=== PATIENT | male | born 1995 | race African-American/Black ===

== ENCOUNTER 2018-08-23 11:40 | Emergency (ER) | payer OTHER ==
[~2018-08-23] VITALS: Ht 175.3 cm; Wt 84.8 kg
[2018-08-23] MEDS ORDERED: TRAMADOL HCL 50 MG TAB PO ONE (12:00)
--- NOTE | 2018-08-23 14:41 | Diagnostic Imaging Report ---
Exam: Left foot series; 3 views dated 08/23/2018 History: Trauma Comparison: None available Findings: No fracture or dislocation. Minimal spurring of the calcaneus. Soft tissues are intact. Impression: No acute bony abnormality. Signed by: Dr. Heilo Solitario DO on 08/23/2018 2:37 PM
== END 2018-08-23 14:50 | disposition home or self-care (01) ==
LOC: ER 11:40
DX: S90.32XA Contusion of left foot, initial encounter (principal); W22.8XXA Striking against or struck by other objects, initial encounter; Y93.01 Activity, walking, marching and hiking; Y92.008 Other place in unspecified non-institutional (private) residence as the place of occurrence of the external cause
CPT/HCPCS: 99283

== ENCOUNTER 2020-01-25 23:42 | Emergency (ER) | payer BC ==
[~2020-01-25] VITALS: Ht 175.3 cm; Wt 90.7 kg
--- NOTE | 2020-01-25 23:52 | Emergency Department Note ---
History of Present Illnes History of Present Illness Chief Complaint: General Medicine Complaints History of Present Illness This is a 24 year old male with acute onset of dyspnea prior to arrival. . Historian: Patient Onset (how long ago): hour(s) Severity: moderate Onset quality: sudden Duration (how long): hour(s) Timing of current episode: constant Progression: waxing and waning Chronicity: new Context: Denies recent illness, Denies recent surgery, Denies recent immobilization, Denies recent travel, Denies trauma/injury, Denies new medications, Denies hx of DVT/PE, Denies non-compliance w/ medications, Denies other Relieving factors: none Exacerbating factors: none Associated symptoms: Reports shortness of breath Treatments prior to arrival: none Past Medical/Family History Physician Review I have reviewed the patient's past medical and family history. Any updates have been documented here. Past Medical History Recent Fever: No Clinical Suspicion of Infectio: No New/Unexplained Change in Ment: No Past Medical History: None Other Surgery: LEFT HAND SURGERY Social History Smoking Cessation: Never Smoker Alcohol Use: None Any Illegal Drug Use: No Other Last Tetanus: UTD Review of Systems Review of Systems Constitutional: Reports no symptoms EENTM: Reports no symptoms Cardiovascular: Reports no symptoms Respiratory: Reports dyspnea Gastrointestinal: Reports no symptoms Genitourinary: Reports no symptoms Musculoskeletal: Reports no symptoms Integumentary: Reports no symptoms Neurological: Reports no symptoms Psychological: Reports no symptoms Endocrine: Reports no symptoms Hematological/Lymphatic: Reports no symptoms Physical Exam Related Data Allergies: Coded Allergies: No Known Allergies (Unverified , 08/23/18) Triage Vital Signs Vital Signs Date Time Temp Pulse Resp B/P (MAP) Pulse Ox O2 Delivery O2 Flow Rate FiO2 01/25/20 23:52 98.4 97 20 179/95 99 Room Air Vital signs reviewed: Yes Physical Exam CONSTITUTIONAL Constitutional: Present well-developed, Present well-nourished HENT HENT: Present normocephalic, Present atraumatic, Present oropharynx clear/moist, Present nose normal HENT L/R: Present left ext ear normal, Present right ext ear normal EYES Eyes: Reports PERRL, Reports conjunctivae normal NECK Neck: Present ROM normal PULMONARY Pulmonary: Present effort normal, Present breath sounds normal CARDIOVASCULAR Cardiovascular: Present regular rhythm, Present heart sounds normal, Present capillary refill normal, Present tachycardia GASTROINTESTINAL Abdominal: Present soft, Present nontender, Present bowel sounds normal GENITOURINARY Genitourinary: Present exam deferred SKIN Skin: Present warm, Present dry MUSCULOSKELETAL Musculoskeletal: Present ROM normal NEUROLOGICAL Neurological: Present alert, Present oriented x 3, Present no gross motor or sensory deficits PSYCHOLOGICAL Psychological: Present mood/affect normal, Present judgement normal Results Laboratory Lab results reviewed: Yes Laboratory comments CBC , CMP , D-Dimer, troponins wnl Imaging Imaging results reviewed: Yes Impressions [place] [address] Patient Name: LEE RANDOLPH JR MR #: [id number] : 1995 Age/Sex: 24/M Req #: [id number] Adm Physician: Ordered by: RHIANNON GALE DO Report #: [id number] Location: [facility] Room/Bed: Procedure: [id number] HOPD/CXR 2 VIEW - HOPD Exam Date: 01/25/20 Exam Time: 2359 REPORT STATUS: Signed EXAMINATION: CXR 2 VIEW - HOPD INDICATION: Dyspnea COMPARISON: None FINDINGS: TUBES and LINES: None. LUNGS: Normal lung volumes. Lungs are clear. No consolidations. PLEURA: No pleural effusion or pneumothorax. HEART AND MEDIASTINUM: The cardiomediastinal silhouette is unremarkable. BONES AND SOFT TISSUES: No acute osseous lesion. Soft tissues are unremarkable. UPPER ABDOMEN: No free air under the diaphragm. IMPRESSION: No acute thoracic radiographic abnormality. Signed by: Damien Ken DO on 01/26/2020 1:20 AM Dictated By: DAMIEN KEN DO 9 Transcribed By: DREA on 01/26/20119 COPY TO: RHIANNON GALE DO~ Procedures 12 Lead ECG Interpretation ECG Interpretation : ECG: ECG 1 Director Foundation: Interpreted by ED physician Date: Jan 26, 2020 Time: 00:03 Prior ECG tracings: reviewed Rhythm: sinus tachycardia Rate: tachycardia BPM: 114 QRS axis: normal ST segments normal: Yes T waves normal: Yes Clinical Impression: non-specific ECG Assessment & Plan Medical Decision Making MDM Diff Dx : PE, PTX, SVT, palpitations, ACS. Assessment & Plan Final Impression: (1) Dyspnea Depart Disposition: HOME, SELF-CARE RHIANNON GALE DO Jan 25, 2020 23:52
[2020-01-26] MEDS ORDERED: LORAZEPAM 0.5 MG TAB ONE (00:13)
[2020-01-26] MEDS ORDERED: LORAZEPAM 1 MG TAB PO ONE (00:15)
--- NOTE | 2020-01-26 01:23 | Diagnostic Imaging Report ---
EXAMINATION: CXR 2 VIEW - HOPD INDICATION: Dyspnea COMPARISON: None FINDINGS: TUBES and LINES: None. LUNGS: Normal lung volumes. Lungs are clear. No consolidations. PLEURA: No pleural effusion or pneumothorax. HEART AND MEDIASTINUM: The cardiomediastinal silhouette is unremarkable. BONES AND SOFT TISSUES: No acute osseous lesion. Soft tissues are unremarkable. UPPER ABDOMEN: No free air under the diaphragm. IMPRESSION: No acute thoracic radiographic abnormality. Signed by: Damien Ken DO on 01/26/2020 1:20 AM
== END 2020-01-26 00:50 | disposition home or self-care (01) ==
LOC: FSED 01-26 00:04
DX: R06.00 Dyspnea, unspecified (principal)
CPT/HCPCS: 71046; 80053; 84484; 85025; 85379; 93005; 99284

== ENCOUNTER 2020-12-28 11:16 | Emergency (ER) | payer BC, OTHER ==
[~2020-12-28] VITALS: Ht 175.3 cm; Wt 94.8 kg
== END 2020-12-28 11:45 | disposition home or self-care (01) ==
LOC: FSED 11:27
DX: B00.1 Herpesviral vesicular dermatitis (principal)
CPT/HCPCS: 99282

== ENCOUNTER 2021-12-09 08:14 | Emergency (ER) | payer BC, OTHER ==
[~2021-12-09] VITALS: Ht 175.3 cm; Wt 99.8 kg
[2021-12-09] MEDS ORDERED: AMOX TR-K CLV1 EAC2 PO (09:26)
== END 2021-12-09 09:43 | disposition home or self-care (01) ==
LOC: FSED 08:17
DX: J02.0 Streptococcal pharyngitis (principal); J45.909 Unspecified asthma, uncomplicated; E66.9 Obesity, unspecified; Z68.32 Body mass index [BMI] 32.0-32.9, adult
CPT/HCPCS: 83518; 87400; 99283